=== PATIENT | male | born 1985 | race Caucasian/White ===

== ENCOUNTER 2018-09-01 16:04 | Emergency (ER) | payer BC ==
[~2018-09-01] VITALS: Ht 172.7 cm; Wt 83.9 kg
[~2018-09-01 16:04] MED LIST: CATAFLAM50 MG PO; CLEOCIN150 MG PO; CLINDAMYCIN150 MG PO; FLEXERIL5 MG PO; HYDROCODONE BIT1 T11 PO; LEVAQUIN 500 M500 M1 PO; MOTRIN800 MG PO; NKHM; NORCO 325 MG-51 TAB PO; NORFLEX100 MG PO; PERCOCET 325 MG1 TA2 PO; PERCOCET 325 MG1 TA6 PO; VICODIN 500 MG-1 TAB PO; ZITHROMAX Z-PA250 MG PO; ZYRTEC10 MG PO
[2018-09-01] MEDS ORDERED: PREDNISONE10 MG PO (19:14)
== END 2018-09-01 19:28 | disposition home or self-care (01) ==
LOC: ED 16:04
DX: L50.8 Other urticaria (principal)

== ENCOUNTER 2021-07-15 16:15 | Emergency (ER) | payer BC ==
[~2021-07-15] VITALS: Ht 172.7 cm; Wt 88.5 kg
[~2021-07-15 16:15] MED LIST changes: +PREDNISONE10 MG PO
== END 2021-07-15 21:05 | disposition home or self-care (01) ==
LOC: ED 16:15
DX: S60.221A Contusion of right hand, initial encounter (principal); Z79.899 Other long term (current) drug therapy; W22.8XXA Striking against or struck by other objects, initial encounter; Y93.89 Activity, other specified; Y92.89 Other specified places as the place of occurrence of the external cause; Y99.8 Other external cause status